=== PATIENT | female | born 1960 | race American Indian/Alaskan Native ===

== ENCOUNTER 2023-08-07 08:15 | Day surgery (SDC) | payer OTHER ==
[2023-08-05 11:15] VITALS: BP 183/83
[~2023-08-07] VITALS: Ht 175.3 cm; Wt 136.4 kg
[~2023-08-07 08:15] MED LIST: COREG25 MG PO; D3-200050 MCG PO; FERRETTS325 MG PO; FOLIC ACID1 MG PO; HYDROCHLOROTH12.5 MG PO; INDAPAMIDE1.25 MG PO; LEVOTHYROXINE112 MC1 PO; ROCALTROL0.25 MCG PO; SODIUM BICARBO650 MG PO; VENTOLIN HFA18 GM; VITAMIN C500 M5; WIXELA 250-501 EACH
[2023-08-07 08:35] VITALS: BP 143/67
[2023-08-07 09:24] LABS: ALBUMIN 3.3 g/dL (3.4-5.0); ALBUMIN/GLOBULIN RATIO 0.8 (1.1-2.4); ANION GAP 17.7 (7-21); BILIRUBIN, TOTAL 0.3 ng/dL (0.2-1.0); BUN/CREATININE RATIO 16.71 (6.0-28.6); CALCIUM 7.3 mg/dL (8.5-10.1); CREATININE, SERUM 3.59 mg/dL (0.55-1.02); POTASSIUM 5.7 mmol/L (3.5-5.1); PROTEIN, TOTAL 7.4 g/dL (6.4-8.2)
--- NOTE | 2023-08-07 14:33 | NUR ---
08/07/23 1433 Maxine Clarke 1417- PT ARRIVES TO PACU, SEMI COYLE POSITION, NS INFUSING TO LFA IV. O2 AT 6L PER MASK. ALL MONITORS IN PLACE. DRESSINGS IN PLACE TO RIGHT BREAST, CDI. ABD SOFT, NON DISTENDED. NON REACTIVE TO STIMULUS. 1421- ICE PLACED TO SURGICAL SITE PER ORDERS. 1428- PT REACTIVE TO STIMULUS, OPEN EYES. DENIES NAUSEA. REPORTS PAIN 3/10 BUT TOLERABLE. ICE REMAINS IN PLACE. 1431- O2 SATS REMAIN 100% ON 6L PER MASK, MOVED TO ROOM AIR. WILL CONTINUE TO MONITOR.
[2023-08-07 15:10] VITALS: BP 183/73
--- NOTE | 2023-08-07 15:12 | NUR ---
MALIK 1505: PT IS BACK TO DS FROM PACU. SHE IS AT HER BASELINE. CALL LIGHT WITHIN REACH. WATER ON BEDSIDE TABLE. PT WOULD LIKE SOME JELLO. NO ADDITIONAL NEEDS. DC CRITERIA IS REVIEWED.
[2023-08-07 16:07] VITALS: BP 195/77
--- NOTE | 2023-08-07 16:09 | NUR ---
MALIK 1605: PT IS TOLERATING WATER AND JELLO. CALL LIGHT WITHIN REACH. REPORTS PAIN IS BETTER. SHE DENIES NEEDING TO VOID AT THIS TIME.
--- NOTE | 2023-08-07 17:02 | NUR ---
MALIK 1645: PT INDICATES THAT SHE WOULD LIKE TO GO HOME. SHE HAS NOT BEEN ABLE TO VOID, BUT DUE TO WEATHER, THIS RN MAKES A CLINICAL JUDGEMENT TO LET HER GO HOME. WITH THE EMPHASIS THAT IF SHE IS NOT ABLE TO VOID WITHIN 8 HOURS SHE NEEDS TO COME BACK TO THE ER. SHE AND HER SISTER VERBALIZE AND AGREE WITH THE PLAN. PT IS IN END-STAGE RENAL FAILURE AND REPORTS NOT VOIDING OFTEN, BUT DOES A GOOD AMOUNT WHEN SHE DOES. PT IS EDUCATED ON HOW TO BEST DRESS HERSELF AND TO OPEN HER CURTAIN WHEN SHE IS READY. MALIK 1650: PT AND SISTER ARE GIVEN VERBAL AND WRITTEN DC INSTRUCTIONS. THEY BOTH VERBALIZE UNDERSTANDING. QUESTIONS ARE ASKED AND ANSWERED. SHE IS TAKEN TO PERSONAL VEHICLE VIA WC, SHE IS ABLE TO TRANSFER HERSELF WITHOUT ISSUES.
--- NOTE | 2023-08-08 07:28 | OR ---
[facility] [address], [place] [address] Signed DATE OF OPERATION: 08/07/2023 SURGEON: Benjamín Murrell MD PREOPERATIVE DIAGNOSIS: Right upper outer quadrant breast cancer (0.9 x 0.8 x 0.7 cm). POSTOPERATIVE DIAGNOSIS: Right upper outer quadrant breast cancer (0.9 x 0.8 x 0.7 cm). PROCEDURES: 1. Injection of methylene blue. 2. Right breast needle localization lumpectomy and sentinel lymph node biopsy. ESTIMATED BLOOD LOSS: None. FINDINGS: Eugenio had two sentinel lymph nodes with respect to the radiotracer. There was no methylene blue present in any lymph node. There was a 3rd lymph node without any radiotracer in that same area. INDICATIONS: Eugenio is a 62-year-old obese diabetic lady, who is originally from [place]. She has also been in [place]. She has now moved up to the [facility]. She had a mammogram about three years ago. When she has made it to [place], [place], she went to her primary care provider to establish. She had a mammogram in May 2023. She had a nonpalpable spiculated mass in the right upper outer quadrant. That was evident on ultrasound three days later at 0.9 x 0.8 x 0.7 cm. There were no obvious pathologic lymph nodes. She went back on 06/17/2023 for the ultrasound-guided core needle biopsies. 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 Her ER and NC receptors are positive. The HER-2/hermelinda was equivocal. She had been sent to the office to see me as a local general surgeon. In the office, Eugenio and I went over this in great detail including her radiographic studies and her biopsy. I gave her our brochure on breast biopsies and breast cancer. We reviewed the concept of a needle localization lumpectomy with the sentinel lymph node biopsy. She had expressed understanding. There is risk including, but not limited to bleeding, infection, scarring, change in contour of the skin as well as possible need for additional surgeries and treatments. She had expressed understanding and wished to proceed. Electronically Signed By: BENJAMÍN MURRELL MD 08/08/23 0728 PATIENT NAME: EUGENIO MILES OPERATIVE REPORT DATE OF : 64 REPORT #: [id number] PHYSICIAN: BENJAMÍN MURRELL MD PCP: NEHEMIAS PEARCE MD REPORT IS CONFIDENTIAL AND NOT TO BE RELEASED WITHOUT AUTHORIZATION [facility] [address] [place] [id number] Signed DESCRIPTION OF PROCEDURE: I had met with Eugenio in our preop area along with our nurse. Eugenio had already been to the radiology department for injection of technetium sulfur colloid with two lymph nodes evident in the axilla. The needle localization wire had been placed as well right next to the mammographic clip. Eugenio and myself and the nurse agreed on these two locations and marked that appropriately. After this, Eugenio was taken to the operating room and placed in the supine position under general endotracheal tube anesthesia. She was given preoperative Ancef along with subcutaneous Lovenox. SCDs were utilized. She was then prepped and draped in the usual sterile fashion. We made a standard incision just to the lateral edge of her pectoralis major muscle and carried down through the axilla bluntly with the cautery. We eventually found two sentinel lymph nodes containing the radiotracer and there was a third lymph node that did not contain any tracer. There was no methylene blue. After this, we injected some local anesthetic into the wound and closed the wound in layers with interrupted 3-0 Monocryl sutures. We then closed the dermis with interrupted 3-0 subcuticular Monocryl sutures. The skin edges were then reapproximated with a running 5-0 fast absorbing plain gut suture. We then turned our attention to her wire. We made a curvilinear incision to include the wire and went down around the wire with the help of the cautery. She has rather large breast and we were able to take a fairly sizable specimen. The specimen was appropriately marked and passed off the field. The radiologist had called back to say that the wire, the clip and the specimen was contained within the specimen. The wound had been irrigated and suctioned out until clear. We closed that wound in layers with interrupted 3-0 Monocryl sutures. We closed the dermis with interrupted 3-0 subcuticular Monocryl sutures. The skin edges were reapproximated with a running 5-0 fast absorbing plain gut suture. Dry gauze and tape was applied to both incisions. Eugenio was then awakened from her anesthesia, extubated in the OR, and taken to recovery room in stable condition. Benjamín Murrell MD ALB/MODL /[id number] cc: MD Benjamín Chapin MD Electronically Signed By: BENJAMÍN MURRELL MD 08/08/23 0728 PATIENT NAME: EUGENIO MILES OPERATIVE REPORT DATE OF : 64 REPORT #: [id number] PHYSICIAN: BENJAMÍN MURRELL MD PCP: NEHEMIAS PEARCE MD REPORT IS CONFIDENTIAL AND NOT TO BE RELEASED WITHOUT AUTHORIZATION [address] [address] Signed Copies: NEHEMIAS PEARCE MD, ANDREW L MD ~ Electronically Signed By: BENJAMÍN MURRELL MD 08/08/23 0728 PATIENT NAME: EUGENIO MILES OPERATIVE REPORT DATE OF : 64 REPORT #: [id number] PHYSICIAN: BENJAMÍN MURRELL MD PCP: NEHEMIAS PEARCE MD REPORT IS CONFIDENTIAL AND NOT TO BE RELEASED WITHOUT AUTHORIZATION
--- NOTE | 2023-08-13 10:57 | PATH ---
[facility] [address] [facility] [place] [address] Signed SPECIMEN(S): A RIGHT BREAST LYMPH NODE #3 SPECIMEN(S): B RIGHT BREAST SENTINEL LYMPH NODE #1 SPECIMEN(S): C RIGHT BREAST SENTINEL LYMPH NODE #2 SPECIMEN(S): D RIGHT BREAST, UPPER OUTER QUADRANT SPECIMEN SOURCE: A. RIGHT BREAST LYMPH NODE #3 B. RIGHT BREAST SENTINEL LYMPH NODE #1 C. RIGHT BREAST SENTINEL LYMPH NODE #2 D. RIGHT BREAST, UPPER OUTER QUADRANT CLINICAL HISTORY: Mass right upper quadrant of breast FINAL PATHOLOGIC DIAGNOSIS: A. Lymph node, "lymph node #3", excision: - One lymph node, negative for metastatic carcinoma (0/1) B. Lymph node, "sentinel lymph node #1", excision: - One lymph node, negative for metastatic carcinoma (0/1) C. Lymph node, "sentinel lymph node #2", excision: - One lymph node, negative for metastatic carcinoma (0/1) D. Breast, right upper outer quadrant, excision: - Invasive ductal carcinoma, see synoptic report INVASIVE CARCINOMA OF THE BREAST: Resection Applies To: A-D SPECIMEN Procedure: Excision (less than total mastectomy) Specimen Laterality: Right TUMOR Tumor Site: Upper outer quadrant Histologic Type: Invasive carcinoma of no special type (ductal) Glandular (Acinar) / Tubular Differentiation: Score 3 Nuclear Pleomorphism: Score 2 Mitotic Rate: Score 2 Overall Grade: Grade 2 (scores of 6 or 7) Tumor Size: Greatest dimension of largest invasive focus (Millimeters) - 19 mm Ductal Carcinoma In Situ (DCIS): Present - Negative for extensive intraductal component (EIC) Architectural Patterns: Comedo, Cribriform, Solid Nuclear Grade: Grade III (high) PATIENT NAME: EUGENIO DERAS PATHOLOGY DATE OF : 64 REPORT #: [id number] PHYSICIAN: JOJO PATHOLOGY PCP: NEHEMIAS PEARCE MD REPORT IS CONFIDENTIAL AND NOT TO BE RELEASED WITHOUT AUTHORIZATION [facility] [address] [place], [place] [address] Signed Necrosis: Present, central (expansive "comedo" necrosis) Lymphatic and / or Vascular Invasion: Not identified Microcalcifications: Present in DCIS Treatment Effect in the Breast: No known presurgical therapy MARGINS Margin Status for Invasive Carcinoma: All margins negative for invasive carcinoma Distance from Invasive Carcinoma to Closest Margin: 10 mm Closest Margin(s) to Invasive Carcinoma: Medial Margin Status for DCIS: All margins negative for DCIS Distance from DCIS to Closest Margin: 10 mm Closest Margin(s) to DCIS: Medial REGIONAL LYMPH NODES Regional Lymph Node Status: All regional lymph nodes negative for tumor Total Number of Lymph Nodes Examined (sentinel and non-sentinel): 3 Number of Ingomar Nodes Examined: 2 pTNM CLASSIFICATION (AJCC 8th Edition) Reporting of pT, pN, and (when applicable) pM categories is based on information available to the pathologist at the time the report is issued. As per the AJCC (Chapter 1, 8th Ed.) it is the managing physician's responsibility to establish the final pathologic stage based upon all pertinent information, including but potentially not limited to this pathology report. pT Category: pT1c pN Category: pN0 Breast Biomarker Testing Performed on Previous Biopsy: Estrogen Receptor (ER) Status: Positive (greater than 10% of cells demonstrate nuclear positivity) Percentage of Cells with Nuclear Positivity: 91-100% Progesterone Receptor (PgR) Status: Positive Percentage of Cells with Nuclear Positivity: 11-20% HER2 (by immunohistochemistry): Equivocal (Score 2+) Percentage of Cells with Uniform Intense Complete Membrane Staining: Cannot be determined HER2 (by in situ hybridization): Negative (not amplified) Testing Performed on COMMENT: As part of [employer]' Quality Improvement Program, this case was reviewed by another member of our pathology staff. BRP PATIENT NAME: POLINA MAGDYEUGENIO PATHOLOGY DATE OF : 64 REPORT #: [id number] PHYSICIAN: Armut PATHOLOGY PCP: NEHEMIAS PEARCE MD REPORT IS CONFIDENTIAL AND NOT TO BE RELEASED WITHOUT AUTHORIZATION [facility] [address] [place] [id number] Signed MICROSCOPIC EXAMINATION: Histologic sections of all submitted blocks are examined by light microscopy. These findings, together with the gross examination, support the pathologic diagnosis. GROSS DESCRIPTION: A. The specimen, labeled and designated "Eulogio Deras " and designated on the requisition "lymph node #3," is received in formalin and consists of 2.1 x 1.5 x 1.2 cm portion of yellow-salazar adipose tissue that upon dissection reveals one possible lymph node that is 1.6 cm in greatest dimension. The lymph node is sectioned and entirely submitted in cassette A1. Only adipose tissue remains within the container. B. The specimen, labeled and designated "Polina Ash R, " and designated on the requisition "sentinel lymph node #1," is received in formalin and consists of 4.2 x 1.9 x 1.5 cm pale pink possible lymph node with attached yellow-salazar adipose tissue. The lymph node is entirely submitted in cassettes B1-B4. C. The specimen, labeled and designated "Polina Ash R, " and designated on the requisition "sentinel lymph node #2," is received in formalin and consists of 2.8 x 1.7 x 0.9 cm yellow-salazar possible lymph node with attached adipose tissue. The lymph node is sectioned and entirely submitted in cassette C1. D. The specimen, labeled and designated "Polina Ash, R, right upper outer quadrant breast cancer," is received in formalin and consists of 96 gram oriented portion of yellow-salazar fibroadipose tissue that is 7.5 x 7.1 x 4.2 cm a metal localization wire identifying skin. The wire is in the skin, double suture deep/posterior margin, long inferior margin, short superior margin. The specimen is inked as follows: superior - blue; inferior - green; medial - red; lateral - orange; anterior - yellow; and posterior - black. A portion of possible pale pink skin measuring 0.4 x 0.3 cm is attached to the metal localization wire on the anterior aspect of the specimen. The specimen is serially sectioned from anterior to posterior into 14 slices revealing a 1.9 x 1.5 x 1.5 cm yellow-white stellate mass present in slices 8-11. 3.6 cm from the anterior soft tissue margin, 1.7 cm from the posterior soft tissue margin, 2.3 cm from the superior soft tissue margin, 4.1 cm from the inferior soft tissue margin, 1.0 cm from the medial soft tissue margin, and 1.3 cm from PATIENT NAME: EUGENIO DERAS PATHOLOGY DATE OF : 64 REPORT #: [id number] PHYSICIAN: JOJO CALVILLO PCP: NEHEMIAS PEARCE MD REPORT IS CONFIDENTIAL AND NOT TO BE RELEASED WITHOUT AUTHORIZATION [facility] [address] [place], [place] [address] Signed the lateral soft tissue margin. Slice nine contains a twisted biopsy cavity clip. Approximately 90% of the remaining specimen is a yellow-salazar greasy adipose tissue and 10% is a white-salazar rubbery fibrous tissue. Drill Press Set Up Operator sections are submitted in 10 cassettes. Cassette Summary: (D1) slice one anterior soft tissue resection margin with possible skin, perpendicular (D2) fibroadipose tissue anterior to mass, slice seven (D3-D4) mass to medial soft tissue resection margin, perpendicular (D5) fibroadipose tissue posterior to mass, slice 12 (D6-D7) lateral soft tissue resection margin, perpendicular (D8) superior soft tissue resection margin, perpendicular (D9) inferior soft tissue resection margin, perpendicular (D10) slice 14, posterior soft tissue resection margin, perpendicular Cold ischemia time: 8 minutes Approximate Formalin time: 44 hours and 30 minutes. FB (under the direct supervision of a pathologist) The Gross Description was prepared using a voice recognition system. The report was reviewed for accuracy; however, sound-alike word errors, addition and/or deletions may occur. If there is any question about this report, please contact Client Services. ADDITIONAL NOTES: Immunohistochemical and/or in situ hybridization studies if performed in this case included appropriate positive controls that reacted as expected. This test was developed and its performance characteristics determined by [employer] [facility]. It has not been cleared or approved by the U.S. Food and Drug Administration. The FDA has determined that such clearance or approval is not necessary. This test is used for clinical purposes. It should not be regarded as investigational or for research. [employer] [facility] is certified under the Clinical Laboratory Improvement Amendments of 1988 (CLIA) as qualified to perform high complexity clinical laboratory testing. PERFORMING LABORATORY: Technical component was performed by [employer] [facility], [address] [place] [id number] (CLIA# [id number]). Professional interpretation [facility], [address] [facility] [place] [address] (CLIA# [id number]). PATIENT NAME: EUGENIO DERAS PATHOLOGY DATE OF : 64 REPORT #: [id number] PHYSICIAN: JOJO PATHOLOGY PCP: NEHEMIAS PEARCE MD REPORT IS CONFIDENTIAL AND NOT TO BE RELEASED WITHOUT AUTHORIZATION [facility] [address] [facility] [place], [place] [address] Signed Diagnostician: Renaldo Spangler MD Pathologist Electronically Signed 08/13/2023 Copies: ~ PATIENT NAME: EUGENIO DERAS PATHOLOGY DATE OF : 64 REPORT #: [id number] PHYSICIAN: JOJO CALVILLO PCP: NEHEMIAS PEARCE MD REPORT IS CONFIDENTIAL AND NOT TO BE RELEASED WITHOUT AUTHORIZATION
== END 2023-08-07 16:55 | disposition home or self-care (01) ==
LOC: DS 08:15
PROVIDERS: Nurse Anesthetist, Certified Registered; ATTEND Colon & Rectal Surgery
PROC: C71LYZZ Planar Nuclear Medicine Imaging of Upper Chest Lymphatics using Other Radionuclide (ICD-10-PCS; 2023-08-07)
PROC: 0HBT0ZZ Excision of Right Breast, Open Approach (ICD-10-PCS; principal; 2023-08-07 12:00)
PROC: 07B50ZZ Excision of Right Axillary Lymphatic, Open Approach (ICD-10-PCS; 2023-08-07 12:00)
DX: C50.411 Malignant neoplasm of upper-outer quadrant of right female breast (principal); E66.9 Obesity, unspecified; E11.22 Type 2 diabetes mellitus with diabetic chronic kidney disease; I12.0 Hypertensive chronic kidney disease with stage 5 chronic kidney disease or end stage renal disease; N18.6 End stage renal disease; E21.3 Hyperparathyroidism, unspecified; Z79.899 Other long term (current) drug therapy; Z88.8 Allergy status to other drugs, medicaments and biological substances
CPT/HCPCS: 00400; 19285; 36415; 76098; 77065; 78195; 80053; 88305; 88307; A9541; J0131; J0690; J1100; J1644; J2001; J2405; J2704; J3010; J3490; J7121; Q9968

== ENCOUNTER 2023-12-02 01:38 | Emergency (ER) | payer OTHER ==
[~2023-12-02] VITALS: Ht 175.3 cm; Wt 138.6 kg
--- OUTSIDE RECORDS SUMMARY | 2023-12-02 01:40 | XMS ---
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 EBao VISIT COUNT (12 MO.) 2 CAMMIE Panchal TOTAL 2 NOTE: Visits indicate total known visits. ED/UCC VISIT TRACKING (12 MO.) 12/02/2023 01:38 CAMMIE Barrera OR TYPE: Emergency COMPLAINT: - SHORTNESS OF BREATH 10/25/2023 11:21 CAMMIE Barrera OR TYPE: Emergency COMPLAINT: - ABNORMAL LABS DIAGNOSES: - Allergy status to other antibiotic agents - End stage renal disease - Hormone replacement therapy - Hyperkalemia - Other fatigue INPATIENT VISIT TRACKING (12 MO.) No inpatient visits to display in this time frame [email or web address]
[2023-12-02] MEDS ORDERED: ALBUTEROL/IPRATROPIUM 3 ML NEB INH ONE (02:30)
[2023-12-02 03:38] LABS: INFLUENZA B NAA NEGATIVE (NEGATIVE); RESPIRATORY SYNCYTIAL VIR NAA NEGATIVE (NEGATIVE)
[2023-12-02 04:44] LABS: EOSINOPHILS 5.3 % (0-6); HEMATOCRIT 23.5 % (35.0-50.0); HEMOGLOBIN 7.5 g/dL (12.0-18.0); LYMPHOCYTES 11.8 % (24-44); MCHC 31.8 g/dl (30-36); MCV 94.1 fl (81-99); MONOCYTES 6.2 % (0-12); NEUTROPHILS 75.7 % (39-80); PLATELET COUNT 224 K/uL (140-440); RDW 16.2 (10.5-15.0)
[2023-12-02 05:07] LABS: ALBUMIN 3.1 g/dL (3.4-5.0); ALBUMIN/GLOBULIN RATIO 0.84 (1.1-2.4); ANION GAP 18.1 (7-21); BILIRUBIN, TOTAL 0.2 ng/dL (0.2-1.0); BUN/CREATININE RATIO 18.7 (6.0-28.6); CALCIUM 6.7 mg/dL (8.5-10.1); CREATININE, SERUM 4.17 mg/dL (0.55-1.02); POTASSIUM 6.1 mmol/L (3.5-5.1); PROTEIN, TOTAL 6.8 g/dL (6.4-8.2)
[2023-12-02 05:19] LABS: BILIRUBIN, URINE NEGATIVE (negative); BLOOD/HGB, URINE NEGATIVE (Negative); KETONE, URINE NEGATIVE (Negative); LEUK ESTERASE, URINE SMALL (negative); NITRITE, URINE NEGATIVE (negative); PH, URINE 5.5 (5-7)
[2023-12-02] MEDS ORDERED: FUROSEMIDE 40 MG/4 ML VIAL IV ONE (05:30)
[2023-12-02] MEDS ORDERED: Insulin Regular, Human 100 UNIT/ML ML IV ONE (05:30)
[2023-12-02] MEDS ORDERED: DEXTROSE 50 % 50 ML VIAL IV ONE (05:30)
[2023-12-02 05:45] LABS: BACTERIA, URINE 1+ /hpf (negative); CASTS, URINE NONE SEEN \\lpf; COLLECTION TYPE, URINE CLEAN CATCH; CRYSTALS, URINE NONE SEEN (0-1+); EPITHELIAL CELLS, URINE SQUAMOUS 2+ /lpf (0-1+); REFLEX CULTURE, URINE No (No)
[2023-12-02] MEDS ORDERED: CALCIUM CHLORIDE 1,000 MG/10 ML SYR IV ONE (05:45)
[2023-12-02] MEDS ORDERED: ALBUTEROL SULFATE 0.5% 2.5 MG/0.5 ML VIAL INH ONE (06:00)
[2023-12-02 06:11] LABS: ABO O; ANTIBODY SCREEN POSITIVE; RH POSITIVE
[2023-12-02 06:13] LABS: ANTIBODY IDENTIFICATION ANTI-E
[2023-12-02] MEDS ORDERED: FUROSEMIDE 40 MG TAB PO ONE (06:15)
[2023-12-02] MEDS ORDERED: SODIUM POLYSTYRENE SULFONATE 15 GM/60 ML UDC PO ONE (06:30)
[2023-12-02] MEDS ORDERED: FUROSEMIDE 100 MG/10 ML VIAL IV ONE ×2 (06:30→09:00)
[2023-12-02 11:25] LABS: ALBUMIN 3.2 g/dL (3.4-5.0); ALBUMIN/GLOBULIN RATIO 0.84 (1.1-2.4); ANION GAP 17.7 (7-21); BILIRUBIN, TOTAL 0.2 ng/dL (0.2-1.0); BUN/CREATININE RATIO 18.46 (6.0-28.6); CALCIUM 7.2 mg/dL (8.5-10.1); CREATININE, SERUM 4.17 mg/dL (0.55-1.02); POTASSIUM 5.7 mmol/L (3.5-5.1)
[2023-12-02 13:14] LABS: ANION GAP 16.9 (7-21); BUN/CREATININE RATIO 19.25 (6.0-28.6); CALCIUM 7.3 mg/dL (8.5-10.1); CREATININE, SERUM 4.05 mg/dL (0.55-1.02); POTASSIUM 5.9 mmol/L (3.5-5.1)
[2023-12-02 17:14] VITALS: BP 156/50
--- NOTE | 2023-12-02 22:43 | EKG ---
[facility] [address] [facility] [place] [address] Signed Normal sinus rhythm Low voltage QRS Cannot rule out Anterior infarct , age undetermined Abnormal ECG When compared with ECG of 25-OCT-2023 12:37, No significant change was found Confirmed by Luiza Gutierrez MD () on 12/02/2023 10:43:47 PM Electronically Signed By: LUIZA GUTIERREZ MD 12/02/23 2243 PATIENT NAME: EUGENIO MILES Electrocardiogram DATE OF : 64 PHYSICIAN: LUIZA GUTIERREZ MD REPORT #: [id number] REPORT IS CONFIDENTIAL AND NOT TO BE RELEASED WITHOUT AUTHORIZATION
== END 2023-12-02 17:17 | disposition short-term general hospital (02) ==
LOC: ED 01:38
PROVIDERS: Emergency Medicine; Internal Medicine
DX: E87.5 Hyperkalemia (principal); J44.9 Chronic obstructive pulmonary disease, unspecified; D64.9 Anemia, unspecified; N18.6 End stage renal disease; I50.9 Heart failure, unspecified; Z88.1 Allergy status to other antibiotic agents; Z79.890 Hormone replacement therapy; Z79.899 Other long term (current) drug therapy; Z11.52 Encounter for screening for COVID-19
CPT/HCPCS: 36415; 71045; 80048; 80053; 81001; 83880; 85025; 86850; 86870; 86900; 86901; 87502; 93005; 93010; 94640; 94644; 96374; 96375; 96376; 99285-25; J1815; J1940; U0002